=== PATIENT | female | born 1980 | race Caucasian/White ===

== ENCOUNTER 2016-12-31 05:25 | Emergency (ER) | payer SELFPAY | END 2016-12-31 08:39 | disposition home or self-care (01) | LOC: ERS 05:25 | DX: R53.1 Weakness (principal); F41.9 Anxiety disorder, unspecified; M79.7 Fibromyalgia | CPT/HCPCS: 99283 ==

== ENCOUNTER 2017-12-10 02:20 | Emergency (ER) | payer SELFPAY | END 2017-12-10 03:03 | disposition home or self-care (01) | LOC: ERS 02:20 | DX: K08.89 Other specified disorders of teeth and supporting structures (principal); F17.210 Nicotine dependence, cigarettes, uncomplicated; F41.9 Anxiety disorder, unspecified; Z79.899 Other long term (current) drug therapy; Z71.6 Tobacco abuse counseling | CPT/HCPCS: 99406 ==

== ENCOUNTER 2018-11-02 02:02 | Emergency (ER) | payer SELFPAY ==
[2018-11-02] MEDS ORDERED: Metoclopramide HCl 10 MG/2 ML VIAL ONE (02:28)
[2018-11-02] MEDS ORDERED: Magnesium 2 GM/50 ML BAG (IN WATER) ONE (02:36)
== END 2018-11-02 03:32 | disposition home or self-care (01) ==
LOC: ERS 02:02
DX: R51 Headache (principal); R68.84 Jaw pain; F17.210 Nicotine dependence, cigarettes, uncomplicated
CPT/HCPCS: 96365; 96368; J2765; J3475

== ENCOUNTER 2019-02-04 13:44 | Emergency (ER) | payer BC, SELFPAY | END 2019-02-04 14:05 | disposition home or self-care (01) | LOC: ERS 13:44 | DX: N39.0 Urinary tract infection, site not specified (principal); F41.9 Anxiety disorder, unspecified; F17.210 Nicotine dependence, cigarettes, uncomplicated; Z79.899 Other long term (current) drug therapy | CPT/HCPCS: 99283 ==

== ENCOUNTER 2020-01-16 12:35 | Emergency (ER) | payer BC, SELFPAY ==
[2020-01-16 12:59] LABS: Bilirubin Negative (Negative); Blood, Urine Negative (Negative); Clarity Clear (Clear); Glucose, Urine (Dipstick) Normal (Negative); Ketone, Urine Negative (Negative); Leukocyte Negative Leu/uL (Negative); Nitrite Negative (Negative); Protein, Urine (Dipstick) Negative (Neg-Trace); Specific Gravity, Urine 1.027 (1.002-1.036); Urobilinogen Normal mg/dL (Less than 2); pH, Urine 5.5 (5.0-9.0)
[2020-01-16] MEDS ORDERED: Ibuprofen 200 MG TAB ONE (13:15)
[2020-01-16] MEDS ORDERED: Acetaminophen 500 MG TAB ONE (13:15)
== END 2020-01-16 14:04 | disposition home or self-care (01) ==
LOC: ERS 12:35
DX: R10.9 Unspecified abdominal pain (principal); F41.9 Anxiety disorder, unspecified; F17.210 Nicotine dependence, cigarettes, uncomplicated; Z79.899 Other long term (current) drug therapy
CPT/HCPCS: 81003; 99284

== ENCOUNTER 2021-04-01 10:00 | Emergency (ER) | payer SELFPAY ==
[2021-04-01] MEDS ORDERED: Ketorolac Tromethamine 30 MG/ML VIAL ONE ×2 (11:40→11:48)
[2021-04-01] MEDS ORDERED: Dexamethasone 4 MG TAB ONE (11:40)
[2021-04-01] MEDS ORDERED: Dexamethasone 4 mg/ml Vial ONE (11:48)
[2021-04-01 19:54] LABS: SARS-CoV-2 PCR by NAA DETECTED (NotDetected)
== END 2021-04-01 13:48 | disposition home or self-care (01) ==
LOC: ERS 10:00
DX: U07.1 COVID-19 (principal); F17.210 Nicotine dependence, cigarettes, uncomplicated
CPT/HCPCS: 87081; 87430; 96372; 99284; J1100; J1885; J8540; U0003; U0005

== ENCOUNTER 2021-12-26 17:59 | Emergency (ER) | payer SELFPAY ==
[2021-12-26] MEDS ORDERED: Dexameth. Sod Phosp. 10 MG/ML (CHEMO USE ONLY) ONE (19:20)
[2021-12-26] MEDS ORDERED: Benzocaine 20% Spray 60 ML CAN ONE (19:23)
== END 2021-12-26 20:08 | disposition home or self-care (01) ==
LOC: ERS 17:59
DX: J02.0 Streptococcal pharyngitis (principal); B34.9 Viral infection, unspecified; Z20.822 Contact with and (suspected) exposure to COVID-19
CPT/HCPCS: 87430; 87804; 99283; J1100; U0003; U0005

== ENCOUNTER 2022-01-28 18:10 | Emergency (ER) | payer SELFPAY ==
[~2022-01-28 18:10] MED LIST: Iopamidol-370 76% 500 ML 1 ML ONE
[2022-01-28 19:07] LABS: #Basophils 0.1 thou/uL (0.0-0.2); #Eosinphils 0.1 thou/uL (0.0-0.7); #Lymphocytes 2.8 thou/uL (1.20-3.40); #Monocytes 0.5 thou/uL (0.11-0.59); #Neutrophils 5.9 thou/uL (1.40-6.50); %Basophils 0.8 % (0.0-1.0); %Eosinophils 0.5 % (0.0-10.0); %Lymphocytes 30.3 % (21.0-51.0); %Monocytes 5.3 % (0.0-10.0); Hemoglobin 14.8 g/dL (12.0-16.0); Mean Corpuscular HGB CONC 33.8 g/dL (32.0-36.0); Mean Platelet Volume 6.9 fL (7.4-10.4); Platelet Count 336 10x3/uL (130-400); RBC Distribution Width 11.4 % (11.5-14.5); Red Blood Cell (RBC) Count 4.36 mill/uL (4.20-5.40); White Blood Cell (WBC) Count 9.3 10x3/uL (4.8-10.8)
[2022-01-28 19:08] LABS: Bilirubin Negative (Negative); Blood, Urine Negative (Negative); Clarity Clear (Clear); Glucose, Urine (Dipstick) Normal (Negative); Ketone, Urine 10 mg/dL (Negative); Leukocyte Negative Leu/uL (Negative); Nitrite Negative (Negative); Protein, Urine (Dipstick) Negative (Neg-Trace); Specific Gravity, Urine 1.008 (1.002-1.036); Urobilinogen Normal mg/dL (Less than 2)
[2022-01-28 19:13] LABS: BHCG - Serum Negative (NEGATIVE); Pregs Control Background? CLEAR/WHITE (CLR/WHITE); Pregs Control Bar Appear? YES (CONTROL BAR)
[2022-01-28 19:22] LABS: ALT (SGPT) 12 U/L (8-55); AST (SGOT) 14 U/L (5-34); Albumin 4.3 g/dL (3.5-5.0); Alkaline Phosphatase 80 U/L (40-110); Anion Gap 12 mmol/L (10-20); BUN (Urea Nitrogen) 12 mg/dL (7.0-18.7); Bilirubin, Total 0.8 mg/dL (0.2-1.2); Calc. Creatinine Clearance 0 mL/min (70-130); Carbon Dioxide 23 mmol/L (22-29); Chloride 105 mmol/L (98-107); Estimated GFR 115; Globulin 3.3 g/dL (2.4-3.5); Glucose 94 mg/dL (70-105); Lipase 11 U/L (8-78); Potassium 3.5 mmol/L (3.5-5.1); Protein, Total 7.6 g/dL (6.0-8.3); Sodium 136 mmol/L (136-145)
== END 2022-01-28 20:10 | disposition home or self-care (01) ==
LOC: ERS 18:10
DX: K52.9 Noninfective gastroenteritis and colitis, unspecified (principal); F17.210 Nicotine dependence, cigarettes, uncomplicated
CPT/HCPCS: 36415; 71045; 74177; 80053; 81003; 83690; 84484; 84703; 85025; 93005; Q9967

== ENCOUNTER 2023-01-12 21:58 | Emergency (ER) | payer SELFPAY ==
[2023-01-13 00:03] LABS: Bacteria/HPF None Seen HPF (None Seen); Bilirubin Negative (Negative); Blood, Urine Negative (Negative); CAUTI Indications for Culture Fever or rigors; Clarity Clear (Clear); Glucose, Urine (Dipstick) Normal (Negative); Ketone, Urine Negative (Negative); Leukocyte Negative Leu/uL (Negative); Nitrite Negative (Negative); Protein, Urine (Dipstick) 10 mg/dL (Neg-Trace); RBC/HPF 0-3 HPF (0-3); Specific Gravity, Urine 1.028 (1.002-1.036); Squamous Epithelial None Seen HPF (0-3); Urobilinogen Normal mg/dL (Less than 2); WBC/HPF 0-3 HPF (0-3)
[2023-01-13 00:04] LABS: Pregnancy Test - Urine (BHCG) Negative (Negative); Pregu Control Background? CLEAR/WHITE (CLR/WHITE); Pregu Control Bar Appear? YES (CONTROL BAR); Specific Gravity 1.028 (1.002-1.036); Urine Culture Reflex No No
[2023-01-13] MEDS ORDERED: Lidocaine 1% MPF 2 ML VIAL ONE (01:37)
[2023-01-13] MEDS ORDERED: cefTRIAXone (ROCEPHIN) 500 MG VIAL ONE (01:38)
[2023-01-14 10:36] LABS: Chlamydia by PCR, Vaginal Swab Not Detected (NotDetected); GC by PCR, Vaginal Swab Not Detected (NotDetected)
== END 2023-01-13 01:04 | disposition home or self-care (01) ==
LOC: ERS 21:58
DX: N88.8 Other specified noninflammatory disorders of cervix uteri (principal); F17.210 Nicotine dependence, cigarettes, uncomplicated
CPT/HCPCS: 76856; 81001; 81025; 87480; 87491; 87510; 87591; 87660; 96372; J0696

== ENCOUNTER 2023-03-07 02:06 | Emergency (ER) | payer SELFPAY ==
[2023-03-07] MEDS ORDERED: Dexamethasone 10 MG/ML VIAL ONE (02:48)
[2023-03-07] MEDS ORDERED: Ketorolac Tromethamine 30 MG (1 mL) VIAL ONE (02:48)
== END 2023-03-07 04:32 | disposition home or self-care (01) ==
LOC: ERS 02:06
DX: J02.9 Acute pharyngitis, unspecified (principal)
CPT/HCPCS: 71045; 87081; 87430; 96372; J1100; J1885

== ENCOUNTER 2023-03-11 20:30 | Emergency (ER) | payer SELFPAY ==
[2023-03-11 22:15] LABS: SARS-CoV-2 NAA Rapid Test Not Detected (NotDetected)
[2023-03-11] MEDS ORDERED: Dexamethasone 10 MG/ML VIAL ONE (22:29)
[2023-03-11] MEDS ORDERED: Ketorolac Tromethamine 30 MG (1 mL) VIAL ONE (22:37)
== END 2023-03-11 22:33 | disposition home or self-care (01) ==
LOC: ERS 20:30
DX: J10.1 Influenza due to other identified influenza virus with other respiratory manifestations (principal)
CPT/HCPCS: 71045; 96372; J1100; J1885